=== PATIENT | female | born 1995 | race African-American/Black ===

== ENCOUNTER 2018-07-27 13:28 | Emergency (ER) | payer SELFPAY ==
--- NOTE | 2018-07-27 13:35 | PDOC ---
Rapid Medical Evaluation Time Seen by Provider: 07/27/18 13:31 Medical Evaluation: 07/27/18 13:31 I have performed a brief in-person evaluation of this patient. The patient presents with a chief complaint of chest pain. Patient reports cold symptoms x 1 week with shortness of breath and productive coughing with yellowish phlegm. No fever or chills. Pertinent physical exam findings NAD nasal congestion clear lung bilaterally [id number] I have ordered the following: ekg, The patient will proceed to the Ed for further evaluation. Dx: chest pain shortness of breath
[2018-07-27 13:36] VITALS: BP 152/93; PULSE 84; TEMP 98; BMI 27.2
--- NOTE | 2018-07-27 14:01 | PDOC ---
History of Present Illness - General Chief Complaint: Cold Symptoms Stated Complaint: COLD SYMPTOMS Time Seen by Provider: 07/27/18 13:31 - History of Present Illness Initial Comments: 07/27/18 13:55 22-year-old female without comorbidities with recent travel [place] the [place] presents for evaluation of sinus congestion 7 days. Past History - Past Medical History Home Medications: Ambulatory Orders Amox-Tr/K Cl [Augmentin - 875Mg Tablet] 1 tab PO BID #20 tablet 07/27/18 Budesonide [Rhinocort Allergy] 1 spray NS ONCE #1 spray.pump 07/27/18 - Suicide/Smoking/Psychosocial Hx Smoking History: Never smoked Have you smoked in the past 12 months: No Information on smoking cessation initiated: No Hx Alcohol Use: No Drug/Substance Use Hx: No Review of Systems - Review of Systems Constitutional: No: Fever HEENTM: Yes: Nose Congestion *Physical Exam - Vital Signs Last Vital Signs Temp Pulse Resp BP Pulse Ox 98 F 84 20 152/93 100 07/27/18 13:31 07/27/18 13:31 07/27/18 13:31 07/27/18 13:31 07/27/18 13:31 - Physical Exam Comments: 07/27/18 13:56 HEAD: NC/AT EYES: Conjuntiva clear Ears: Canals and TM's normal NOSE: No d/c, turbinates injected THROAT: Moist mucous membrances, oral pharanx clear, uvula midline NECK: Supple without adenopathy CARDIAC: S1 S2 LUNGS: CTA Full and Equal breath sounds ABDOMEN: Soft NT ND MS: Full ROM in all joints without edema NEUROLOGIC: No gross sensory or motor deficits, NVID SKIN: Normal color and temperature no lesions or rashes Moderate Sedation - Procedure Monitoring Vital Signs: Procedure Monitoring Vital Signs Temperature 98 F 07/27/18 13:31 Pulse Rate 84 07/27/18 13:31 Respiratory Rate 20 07/27/18 13:31 Blood Pressure 152/93 07/27/18 13:31 O2 Sat by Pulse Oximetry (%) 100 07/27/18 13:31 *DC/Admit/Observation/Transfer Diagnosis at time of Disposition: Sinusitis - Prescriptions Prescriptions: Amox-Tr/K Cl [Augmentin - 875Mg Tablet] 1 tab PO BID #20 tablet Budesonide [Rhinocort Allergy] 1 spray NS ONCE #1 spray.pump - Referrals - Patient Instructions - Post Discharge Activity
--- NOTE | 2018-07-28 10:04 | EKG ---
Test Reason : Blood Pressure : / mmHG Vent. Rate : 078 BPM Atrial Rate : 078 BPM P-R Int : 160 ms QRS Dur : 086 ms QT Int : 388 ms P-R-T Axes : 040 064 025 degrees QTc Int : 442 ms SINUS RHYTHM WITH MARKED SINUS ARRHYTHMIA NONSPECIFIC T WAVE ABNORMALITY ABNORMAL ECG NO PREVIOUS ECGS AVAILABLE Confirmed by Slade Villegas MD ([id number]) on 07/28/2018 10:03:53 AM Referred By: Confirmed By:Slade Villegas MD
== END 2018-07-27 14:04 | disposition home or self-care (01) ==
LOC: JERFT 13:28
DX: J32.9 Chronic sinusitis, unspecified (principal)
CPT/HCPCS: 93005; 93010; 99281-25

== ENCOUNTER 2019-03-25 16:35 | Emergency (ER) | payer OTHER ==
--- NOTE | 2019-03-25 16:39 | PDOC ---
Rapid Medical Evaluation Time Seen by Provider: 03/25/19 16:37 Medical Evaluation: 03/25/19 16:37 I have performed a brief in-person evaluation of this patient. The patient presents with a chief complaint of: chest pain x1 day; also with vaginal discharge Pertinent physical exam findings: No focal findings with vaginal exam deferred. I have ordered the following: ekg The patient will proceed to the ED for further evaluation. Discharge Disposition - Diagnosis Chest pain - Referrals - Patient Instructions - Post Discharge Activity
[2019-03-25 16:40] VITALS: TEMP 98.2; BMI 26.6
[2019-03-25 18:00] LABS: EPI CELLS 6.2 /HPF (0-5/HPF); HYALINE CASTS 39 /lpf (0-8); PH,URINE 6.5 (5.0-8.0); URINE APPEARANCE CLEAR; URINE BACTERIA 1285.5 /hpf (NEGATIVE); URINE BILIRUBIN NEGATIVE (NEGATIVE); URINE COLOR YELLOW; URINE GLUCOSE (UA) NEGATIVE (NEGATIVE); URINE KETONE NEGATIVE (NEGATIVE); URINE LEUK ESTERASE 2+ (NEGATIVE); URINE NITRITE NEGATIVE (NEGATIVE); URINE PROTEIN NEGATIVE (NEGATIVE); URINE WBC 54 /hpf (0-5)
--- NOTE | 2019-03-25 18:50 | PDOC ---
History of Present Illness - General Chief Complaint: Chest Pain Stated Complaint: CHEST PAIN, VAGINAL DISCHARGE Time Seen by Provider: 03/25/19 16:37 History Source: Patient Exam Limitations: No Limitations Past History - Past Medical History Allergies/Adverse Reactions: Allergies Allergy/AdvReac Type Severity Reaction Status Date / Time No Known Allergies Allergy Verified 03/25/19 16:40 Home Medications: Ambulatory Orders Cephalexin Monohydrate [Keflex -] 500 mg PO BID #14 capsule 03/25/19 Fluconazole 100 mg PO ONCE #1 tablet 03/25/19 Miconazole Nitrate [Monistat Topical Cream -] 1 applic TP BID #1 tube 03/25/19 COPD: No - Suicide/Smoking/Psychosocial Hx Smoking History: Never smoked Have you smoked in the past 12 months: No Information on smoking cessation initiated: No Hx Alcohol Use: No Drug/Substance Use Hx: No *Physical Exam - Vital Signs Last Vital Signs Temp Pulse Resp BP Pulse Ox 98.2 F 64 19 124/79 99 03/25/19 16:38 03/25/19 16:38 03/25/19 16:38 03/25/19 16:38 03/25/19 16:38 ED Treatment Course - LABORATORY CBC & Chemistry Diagram: 03/25/19 19:34 03/25/19 19:34 - ADDITIONAL ORDERS Additional order review: Laboratory Results 03/25/19 03/25/19 16:55 16:55 Urine Color Yellow Urine Appearance Clear Urine pH 6.5 Ur Specific Gary 1.024 Urine Protein Negative Urine Glucose (UA) Negative Urine Ketones Negative Urine Blood Negative Urine Nitrite Negative Urine Bilirubin Negative Urine Urobilinogen 1.0 Ur Leukocyte Esterase 2+ H Urine WBC (Auto) 54 Urine Casts (Auto) 39 U Epithel Cells (Auto) 6.2 Urine Bacteria (Auto) 1285.5 Urine HCG, Qual Negative *DC/Admit/Observation/Transfer Diagnosis at time of Disposition: Yeast infection Chest pain Qualifiers: Chest pain type: unspecified Qualified Code(s): R07.9 - Chest pain, unspecified - Discharge Dispostion Disposition: HOME Condition at time of disposition: Stable Decision to Admit order: No - Prescriptions Prescriptions: Cephalexin Monohydrate [Keflex -] 500 mg PO BID #14 capsule Fluconazole 100 mg PO ONCE #1 tablet Miconazole Nitrate [Monistat Topical Cream -] 1 applic TP BID #1 tube - Referrals Referrals: Albert Dooley MD [Staff Physician] - - Patient Instructions Printed Discharge Instructions: DI for Vaginal Yeast Infection Additional Instructions: You were evaluated for your chest pain and vaginal discharge today You have a yeast infection and a urinary tract infection Take the fluconazole on Friday. Use the Monistat twice a day to help with the itching. Take the Keflex twice a day for one week. Finish the entire dose even if you feel better Drink plenty of fluids Your EKG and lab work for your heart was normal today Return to the ER for any new or worsening symptoms - Post Discharge Activity
[2019-03-25] MEDS ORDERED: ACETAMINOPHEN 325 MG TABLET (FP) PO ONE (19:02)
[2019-03-25] MEDS ORDERED: FLUCONAZOLE 50 MG TABLET PO ONE (19:02)
[2019-03-25 19:17] LABS: URINE RBC 2.8 /hpf (0-4)
[2019-03-25] MEDS ORDERED: ACETAMINOPHEN 325 MG TABLET (FP) ONE (19:24)
[2019-03-25] MEDS ORDERED: FLUCONAZOLE 100 MG TABLET (UD) ONE (19:24)
[2019-03-25 19:53] LABS: BASO % 0.3 % (0-2.0); EOS % 1.2 % (0-4.5); HEMATOCRIT 39.7 % (32.4-45.2); HEMOGLOBIN 12.5 GM/dL (10.7-15.3); MCH 24.5 pg (25.7-33.7); MCHC 31.6 g/dl (32.0-36.0); MEAN CELL VOLUME 77.6 fl (80-96); MEAN PLT VOLUME 8.3 fl (7.5-11.1); MONO % 7.9 % (3.8-10.2); NEUT % 56.6 % (42.8-82.8); PLATELET COUNT 359 K/MM3 (134-434); RBC 5.12 M/mm3 (3.60-5.2); RDW 14.8 % (11.6-15.6); WHITE BLOOD COUNT 8.6 K/mm3 (4.0-10.0)
[2019-03-25 20:40] LABS: ALBUMIN 3.9 g/dl (3.4-5.0); BILIRUBIN,TOTAL 0.3 mg/dL (0.2-1); BLOOD UREA NITROGEN 14.1 mg/dL (7-18); CALCIUM 9.2 mg/dL (8.5-10.1); CREATININE 0.8 mg/dL (0.55-1.3); POTASSIUM 3.8 mmol/L (3.5-5.1); TOT PROT 7.8 g/dl (6.4-8.2)
[2019-03-25 20:43] VITALS: BP 139/86; PULSE 61
--- NOTE | 2019-03-25 21:51 | PDOC ---
*Physical Exam - Vital Signs Last Vital Signs Temp Pulse Resp BP Pulse Ox 98.2 F 61 20 139/86 100 03/25/19 16:38 03/25/19 20:38 03/25/19 20:38 03/25/19 20:38 03/25/19 20:38 ED Treatment Course - LABORATORY CBC & Chemistry Diagram: 03/25/19 19:34 03/25/19 19:34 - ADDITIONAL ORDERS Additional order review: Laboratory Results 03/25/19 03/25/19 03/25/19 19:34 19:34 16:55 Sodium 140 Potassium 3.8 Chloride 102 Carbon Dioxide 30 Anion Gap 8 BUN 14.1 Creatinine 0.8 Est GFR (CKD-EPI)AfAm 119.60 Est GFR (CKD-EPI)NonAf 103.19 Random Glucose 84 Calcium 9.2 Total Bilirubin 0.3 AST 10 L ALT 13 Alkaline Phosphatase 73 Creatine Kinase 54 Troponin I < 0.02 Total Protein 7.8 Albumin 3.9 Urine Color Yellow Urine Appearance Clear Urine pH 6.5 Ur Specific Christine 1.024 Urine Protein Negative Urine Glucose (UA) Negative Urine Ketones Negative Urine Blood Negative Urine Nitrite Negative Urine Bilirubin Negative Urine Urobilinogen 1.0 Ur Leukocyte Esterase 2+ H Urine WBC (Auto) 54 Urine RBC (Auto) 2.8 Urine Casts (Auto) 39 U Pathogenic Cast Auto None seen U Epithel Cells (Auto) 6.2 Urine Bacteria (Auto) 1285.5 Urine HCG, Qual 03/25/19 16:55 Sodium Potassium Chloride Carbon Dioxide Anion Gap BUN Creatinine Est GFR (CKD-EPI)AfAm Est GFR (CKD-EPI)NonAf Random Glucose Calcium Total Bilirubin AST ALT Alkaline Phosphatase Creatine Kinase Troponin I Total Protein Albumin Urine Color Urine Appearance Urine pH Ur Specific Christine Urine Protein Urine Glucose (UA) Urine Ketones Urine Blood Urine Nitrite Urine Bilirubin Urine Urobilinogen Ur Leukocyte Esterase Urine WBC (Auto) Urine RBC (Auto) Urine Casts (Auto) U Pathogenic Cast Auto U Epithel Cells (Auto) Urine Bacteria (Auto) Urine HCG, Qual Negative 03/25/19 19:34 RBC 5.12 MCV 77.6 L MCHC 31.6 L RDW 14.8 MPV 8.3 Neutrophils % 56.6 Lymphocytes % 34.0 Monocytes % 7.9 Eosinophils % 1.2 Basophils % 0.3 - Medications Given in the ED: ED Medications Discontinued Medications Generic Name Dose Route Start Last Admin Trade Name Charity PRN Reason Stop Dose Admin Acetaminophen 650 mg 03/25/19 19:02 03/25/19 19:41 Tylenol - PO 03/25/19 19:03 650 mg ONCE ONE Administration Fluconazole 150 mg 03/25/19 19:02 03/25/19 19:40 Diflucan - PO 03/25/19 19:03 150 mg ONCE ONE Administration Medical Decision Making - Medical Decision Making 03/25/19 21:50 Case reviewed, agree with assessment and plan *DC/Admit/Observation/Transfer Diagnosis at time of Disposition: Yeast infection Chest pain Qualifiers: Chest pain type: unspecified Qualified Code(s): R07.9 - Chest pain, unspecified - Discharge Dispostion Disposition: HOME Condition at time of disposition: Stable - Prescriptions Prescriptions: Cephalexin Monohydrate [Keflex -] 500 mg PO BID #14 capsule Fluconazole 100 mg PO ONCE #1 tablet Miconazole Nitrate [Monistat Topical Cream -] 1 applic TP BID #1 tube - Referrals Referrals: Albert Dooley MD [Staff Physician] - - Patient Instructions Printed Discharge Instructions: DI for Vaginal Yeast Infection Additional Instructions: You were evaluated for your chest pain and vaginal discharge today You have a yeast infection and a urinary tract infection Take the fluconazole on Friday. Use the Monistat twice a day to help with the itching. Take the Keflex twice a day for one week. Finish the entire dose even if you feel better Drink plenty of fluids Your EKG and lab work for your heart was normal today Return to the ER for any new or worsening symptoms - Post Discharge Activity
--- NOTE | 2019-03-26 14:10 | EKG ---
Test Reason : Blood Pressure : / mmHG Vent. Rate : 067 BPM Atrial Rate : 067 BPM P-R Int : 174 ms QRS Dur : 084 ms QT Int : 400 ms P-R-T Axes : 037 062 036 degrees QTc Int : 422 ms NORMAL SINUS RHYTHM NORMAL ECG WHEN COMPARED WITH ECG OF 27-JUL-2018 13:38, NO SIGNIFICANT CHANGE WAS FOUND Confirmed by EMANI VELA MD ([id number]) on 03/26/2019 2:09:33 PM Referred By: Confirmed By:EMANI VELA MD
== END 2019-03-25 22:00 | disposition home or self-care (01) ==
LOC: JER 16:35
DX: R07.9 Chest pain, unspecified (principal); B37.3 Candidiasis of vulva and vagina
CPT/HCPCS: 36415; 71046-TC-FY; 80053; 81003; 82550; 84484; 84703; 85025; 87070; 87086; 87205; 93005; 93010; 99283-25

== ENCOUNTER 2021-04-22 10:48 | Emergency (ER) | payer OTHER ==
[2021-04-22 10:57] VITALS: BP 136/80; PULSE 66; TEMP 97; BMI 28.0
[2021-04-22] MEDS ORDERED: SODIUM CHLORIDE 1,000 ML IV STA (11:25)
[2021-04-22] MEDS ORDERED: ACETAMINOPHEN 1000 MG/100 ML VIAL (NON FORMULARY) IVPB ONE (11:25)
[2021-04-22] MEDS ORDERED: METOCLOPRAMIDE HCL INJECTION 10 MG/2 ML VIAL IVPB ONE (11:25)
[2021-04-22] MEDS ORDERED: METOCLOPRAMIDE HCL INJECTION 10 MG/2 ML VIAL ONE (11:36)
[2021-04-22] MEDS ORDERED: ACETAMINOPHEN INJECTION 100 ML IVPB ONE (11:36)
[2021-04-22 12:14] LABS: BASO % 0.7 % (0-2.0); EOS % 1.3 % (0-4.5); HEMATOCRIT 40.8 % (32.4-45.2); HEMOGLOBIN 13.3 GM/dL (10.7-15.3); LYMPH % 34.2 % (8-40); MCH 24.9 pg (25.7-33.7); MCHC 32.6 g/dl (32.0-36.0); MEAN CELL VOLUME 76.4 fl (80-96); MEAN PLT VOLUME 8.5 fl (7.5-11.1); MONO % 9.8 % (3.8-10.2); PLATELET COUNT 292 10^3/uL (134-434); RBC 5.34 M/mm3 (3.60-5.2); RDW 18.4 % (11.6-15.6); WHITE BLOOD COUNT 6.9 K/mm3 (4.0-10.0)
[2021-04-22 12:23] LABS: CHLORIDE 105 mmol/L (98-107); SODIUM 136 mmol/L (136-145)
[2021-04-22 12:27] LABS: ANION GAP 7 MMOL/L (8-16); CALCIUM 8.9 mg/dL (8.5-10.1); CO2 24 mmol/L (21-32)
[2021-04-22 12:28] LABS: ALBUMIN 3.4 g/dl (3.4-5.0); BLOOD UREA NITROGEN 19.3 mg/dL (7-18); GLUCOSE,RANDOM 81 mg/dL (74-106)
[2021-04-22] MEDS ORDERED: ONDANSETRON *ODT* 4 MG TABLET SL ONE (12:29)
[2021-04-22 12:31] LABS: CREATININE 0.9 mg/dL (0.55-1.3); SGOT/AST 10 U/L (15-37); SGPT/ALT 18 U/L (13-61)
[2021-04-22] MEDS ORDERED: ONDANSETRON *ODT* 4 MG TABLET ONE (12:31)
[2021-04-22 12:32] LABS: BILIRUBIN,TOTAL 0.3 mg/dL (0.2-1); TOT PROT 7.8 g/dl (6.4-8.2)
[2021-04-22 12:33] LABS: ALK PHOS 69 U/L (45-117)
== END 2021-04-22 13:41 | disposition home or self-care (01) ==
LOC: JER 10:48
PROC: 3E033GC Introduction of Other Therapeutic Substance into Peripheral Vein, Percutaneous Approach (ICD-10-PCS; principal; 2021-04-22)
DX: G43.109 Migraine with aura, not intractable, without status migrainosus (principal)
CPT/HCPCS: 36415; 80053; 82550; 84484; 85025; 93005; 93010; 96361; 96374; 96375; 99284-25; J0131; Q0162

== ENCOUNTER 2022-01-07 18:26 | Emergency (ER) | payer OTHER ==
[2022-01-07 19:05] VITALS: BP 117/71; PULSE 69; TEMP 98.3; BMI 28.0
== END 2022-01-07 21:11 | disposition left against medical advice (07) ==
LOC: JER 18:26
DX: R10.30 Lower abdominal pain, unspecified (principal)
CPT/HCPCS: 99281-25